=== PATIENT | male | born 1955 | race Caucasian/White ===

== ENCOUNTER 2017-03-13 07:12 | Emergency (ER) | payer OTHER ==
[~2017-03-13 07:12] MED LIST: ASPI81TA82 PO; CLIN1CAP6 PO; CRES10TA PO
[2017-03-13 07:15] VITALS: BP 187/101; PULSE 84; RESP 15; TEMP 98.2; O2SAT 99
[2017-03-13] MEDS ORDERED: SODIUM CHLOR 0.9% 1000 ML INJ 1,000 ML IV SCH (07:39)
[2017-03-13] MEDS ORDERED: RANI1TAB5 PO (07:42)
[2017-03-13] MEDS ORDERED: AMLO10TA2 PO (07:42)
[2017-03-13] MEDS ORDERED: ROSU1TAB8 PO (07:42)
[2017-03-13 07:44] VITALS: O2SAT 98
--- NOTE | 2017-03-13 07:44 | PD ---
HPI Chief Complaint: Abdominal Pain Time Seen by Provider: 07:39 Travel History International Travel<30 days: No Contact w/Intl Traveler<30days: No Traveled to known affect area: No History of Present Illness HPI 61-year-old male with history of diverticulosis, presents to the ER today for 3 weeks history of left upper quadrant abdominal pains which he currently measures at a 2 out of 10, nausea for the last day, had been seen by Dr. Montgomery and had a CAT scan done on Sunday, had an allergic reaction to the IV dye, but does not have CAT scan results yet. He denies any diarrhea, fevers, or any other symptoms. Modifying Factors: None Associated Signs & Symptoms: Left upper quadrant abdominal pains, nausea Risk Factors: None PFSH Past Medical History Hypertension: Yes ?: Not Past Surgical History Tonsillectomy: Yes Social History Alcohol Use: No Tobacco Use: No Substance Use: No Allergies-Medications (Allergen,Severity, Reaction): Coded Allergies: Iodinated Contrast- Oral and IV Dye (Verified Allergy, Severe, throat swelling, 03/13/17) Sulfa (Sulfonamide Antibiotics) (Unverified Allergy, Severe, SWELLING, ) Reported Meds & Prescriptions Reported Meds & Active Scripts Active Reported Amlodipine (Amlodipine Besylate) 10 Mg Tab 10 Mg PO DAILY Ranitidine 75 (Ranitidine HCl) 75 Mg Tab 75 Mg PO DAILY Take 30 to 60 minutes before eating food or drinking beverages that cause heartburn. Rosuvastatin (Rosuvastatin Calcium) 20 Mg Tab 20 Mg PO DAILY Review of Systems Except as stated in HPI: all other systems reviewed are Neg Physical Exam Narrative GENERAL: Well-developed elderly white male patient currently mild distress. Awake and oriented 3. SKIN: Focused skin assessment warm/dry. HEAD: Atraumatic. Normocephalic. EYES: Pupils equal and round. No scleral icterus. No injection or drainage. ENT: No nasal bleeding or discharge. Mucous membranes pink and moist. NECK: Trachea midline. No JVD. CARDIOVASCULAR: Regular rate and rhythm. No murmur appreciated. RESPIRATORY: No accessory muscle use. Clear to auscultation. Breath sounds equal bilaterally. GASTROINTESTINAL: Abdomen soft, non-tender, nondistended. Hepatic and splenic margins not palpable. MUSCULOSKELETAL: No obvious deformities. No clubbing. No cyanosis. No edema. NEUROLOGICAL: Awake and alert. No obvious cranial nerve deficits. Motor grossly within normal limits. Normal speech. PSYCHIATRIC: Appropriate mood and affect; insight and judgment normal. Data Data Last Documented VS Vital Signs Date Time Temp Pulse Resp B/P (MAP) Pulse Ox O2 Delivery O2 Flow Rate FiO2 03/13/17 07:45 86 18 135/86 (102) 99 Room Air 03/13/17 07:15 98.2 Orders Orders Complete Blood Count With Diff (03/13/17 07:39) Comprehensive Metabolic Panel (03/13/17 07:39) Lipase (03/13/17 07:39) Urinalysis - C+S If Indicated (03/13/17 07:39) Iv Access Insert/Monitor (03/13/17 07:39) Ecg Monitoring (03/13/17 07:39) Oximetry (03/13/17 07:39) Ondansetron Inj (Zofran Inj) (03/13/17 07:45) Sodium Chlor 0.9% 1000 Ml Inj (Ns 1000 M (03/13/17 07:39) Sodium Chloride 0.9% Flush (Ns Flush) (03/13/17 07:45) Famotidine Inj (Pepcid Inj) (03/13/17 07:45) Electrocardiogram (03/13/17 07:44) Ckmb (Isoenzyme) Profile (03/13/17 07:44) Troponin I (03/13/17 07:44) Chest, Single Ap (03/13/17 07:44) Abdomen, Flat & Upright (03/13/17 07:44) Labs Laboratory Tests Test 03/13/17 07:40 03/13/17 08:50 White Blood Count 7.2 TH/MM3 Red Blood Count 5.15 MIL/MM3 Hemoglobin 16.2 GM/DL Hematocrit 46.8 % Mean Corpuscular Volume 90.8 FL Mean Corpuscular Hemoglobin 31.5 PG Mean Corpuscular Hemoglobin Concent 34.7 % Red Cell Distribution Width 12.9 % Platelet Count 284 TH/MM3 Mean Platelet Volume 7.7 FL Neutrophils (%) (Auto) 62.6 % Lymphocytes (%) (Auto) 27.5 % Monocytes (%) (Auto) 8.2 % Eosinophils (%) (Auto) 1.3 % Basophils (%) (Auto) 0.4 % Neutrophils # (Auto) 4.5 TH/MM3 Lymphocytes # (Auto) 2.0 TH/MM3 Monocytes # (Auto) 0.6 TH/MM3 Eosinophils # (Auto) 0.1 TH/MM3 Basophils # (Auto) 0.0 TH/MM3 CBC Comment DIFF FINAL Differential Comment Blood Urea Nitrogen 17 MG/DL Creatinine 0.98 MG/DL Random Glucose 105 MG/DL Total Protein 7.7 GM/DL Albumin 4.0 GM/DL Calcium Level 8.7 MG/DL Alkaline Phosphatase 81 U/L Aspartate Amino Transf (AST/SGOT) 27 U/L Alanine Aminotransferase (ALT/SGPT) 55 U/L Total Bilirubin 0.6 MG/DL Sodium Level 139 MEQ/L Potassium Level 3.6 MEQ/L Chloride Level 104 MEQ/L Carbon Dioxide Level 27.5 MEQ/L Anion Gap 8 MEQ/L Estimat Glomerular Filtration Rate 78 ML/MIN Total Creatine Kinase 70 U/L Troponin I LESS THAN 0.02 NG/ML Lipase 103 U/L Urine Color COLORLESS Urine Turbidity CLEAR Urine pH 7.0 Urine Specific [place] 1.002 Urine Protein NEG mg/dL Urine Glucose (UA) NEG mg/dL Urine Ketones NEG mg/dL Urine Occult Blood NEG Urine Nitrite NEG Urine Bilirubin NEG Urine Urobilinogen LESS THAN 2.0 MG/DL Urine Leukocyte Esterase NEG Microscopic Urinalysis Comment CULT NOT INDICATED MDM Medical Decision Making Medical Screen Exam Complete: Yes Emergency Medical Condition: Yes Medical Record Reviewed: Yes Interpretation(s) EKG shows NSR, no ST elevation or depression, and no arrhythmias. No significant T-wave inversions. Laboratory Tests Test 03/13/17 07:40 03/13/17 08:50 Monocytes (%) (Auto) 8.2 % (0.0-8.0) Estimat Glomerular Filtration Rate 78 ML/MIN (>89) Troponin I LESS THAN 0.02 NG/ML Last 24 hours Impressions Chest X-Ray 03/13/17 0744 Signed Impressions: Service Date/Time: Monday, March 13, 2017 08:45 - CONCLUSION: 1. No acute cardiopulmonary disease. Juan Antonio Herman MD Differential Diagnosis Left upper quadrant abdominal pains and nausea: Gastritis versus gastroenteritis versus diverticulitis versus gastric ulcer versus cardiac issues Narrative Course EKG did not show any signs of acute ST-T changes or dysrhythmias. A review of patient's CAT scan done last week did not show any signs of acute processes. Lab work was otherwise unremarkable. Vital signs are stable in the ER. Patient had been given IV fluids and Zofran. At this point, my plan would be to release the patient would follow-up to his physician. Return for worsening in symptoms as necessary. The plan has been discussed with him and he states understanding. Diagnosis Primary Impression: Abdominal pain Med/Other Pt SpecificInfo: Prescription(s) given Scripts Ondansetron Odt (Zofran Odt) 4 Mg Tab 4 MG SL Q6HR Y for Nausea/Vomiting, #7 TAB 0 Refills Prov: Andrea Mazariegos MD 03/13/17 Disposition: 01 DISCHARGE HOME Condition: Stable Andrea Mazariegos MD Mar 13, 2017 07:44
[2017-03-13 07:45] VITALS: BP 135/86; PULSE 86; RESP 18; O2SAT 99
[2017-03-13] MEDS ORDERED: FAMOTIDINE 20 MG/2 ML VIAL IV PUSH ONE (07:45)
[2017-03-13] MEDS ORDERED: SODIUM CHLORIDE 0.9% FLUSH 10 ML FLUSH IV FLUSH PRN (07:45)
[2017-03-13] MEDS ORDERED: ONDANSETRON HCL 4 MG/2 ML VIAL IVP ONE (07:45)
[2017-03-13 08:30] LABS: AUTOMATED NEUTROPHIL # 4.5 TH/MM3 (1.8-7.7); BASOPHIL % 0.4 % (0.0-2.0); EOSINOPHIL # 0.1 TH/MM3 (0-0.4); EOSINOPHIL % 1.3 % (0.0-4.0); HEMATOCRIT 46.8 % (39.0-51.0); HEMO FLAGS DIFF FINAL; LYMPH % 27.5 % (9.0-44.0); MEAN CELL VOLUME 90.8 FL (80.0-100.0); MEAN CORPUSCULAR HEMOGLOBIN 31.5 PG (27.0-34.0); MEAN CORPUSCULAR HGB CONC 34.7 % (32.0-36.0); MONO % 8.2 % (0.0-8.0); NEUT % 62.6 % (16.0-70.0); PLATELET COUNT 284 TH/MM3 (150-450); RED BLOOD COUNT 5.15 MIL/MM3 (4.50-5.90); RED CELL DISTRIBUTION WIDTH 12.9 % (11.6-17.2); WHITE BLOOD COUNT 7.2 TH/MM3 (4.0-11.0)
[2017-03-13 08:37] LABS: ALT (GPT) 55 U/L (12-78); ANION GAP 8 MEQ/L (5-15); AST (GOT) 27 U/L (15-37); BICARBONATE 27.5 MEQ/L (21.0-32.0); BLOOD UREA NITROGEN 17 MG/DL (7-18); CHLORIDE 104 MEQ/L (98-107); GLOMERULAR FILTRATION RATE 78 ML/MIN (>89); POTASSIUM 3.6 MEQ/L (3.5-5.1); SODIUM (NA) 139 MEQ/L (136-145)
[2017-03-13 08:39] LABS: ALKALINE PHOSPHATASE 81 U/L (45-117); TOTAL BILIRUBIN ADULT 0.6 MG/DL (0.2-1.0)
[2017-03-13 08:48] LABS: CREATINE KINASE 70 U/L (39-308)
--- NOTE | 2017-03-13 09:12 | RADRPT ---
EXAM DATE/TIME: 03/13/2017 08:45 [facility] COMPARISON: No previous studies available for comparison. INDICATIONS : Nausea and upper abdomen discomfort. MEDICAL HISTORY : None. SURGICAL HISTORY : None. ENCOUNTER: Initial ACUITY: 3 weeks PAIN SCORE: 0/10 LOCATION: Bilateral chest abdomen discomfort. FINDINGS: A single view of the chest demonstrates the lungs to be symmetrically aerated without evidence of mas s, infiltrate or effusion. The cardiomediastinal contours are unremarkable. Osseous structures are intact. CONCLUSION: 1. No acute cardiopulmonary disease. Juan Antonio Herman MD on March 13, 2017 at 9:10 Board Certified Radiologist. This report was verified electronically.
[2017-03-13 09:15] LABS: BLOOD, URINE NEG (NEG); GLUCOSE,URINE NEG (NEG); KETONE, URINE NEG (NEG); NITRITE,URINE NEG (NEG); URINE COLOR COLORLESS (YELLW/STRAW)
[2017-03-13 09:18] LABS: COMMENT (UR) CULT NOT INDICATED; CULTURE IF INDICATED CULT NOT INDICATED
--- NOTE | 2017-03-13 09:20 | RADRPT ---
EXAM DATE/TIME: 03/13/2017 08:41 [facility] COMPARISON: No previous studies available for comparison. EXTERNAL COMPARISON : [facility] March 09, 2017 INDICATIONS : Nausea and upper abdomen discomfort. Patient states he had a CT scan and had a reaction the other day . Started not feeling well a few days later. MEDICAL HISTORY : None. SURGICAL HISTORY : None. ENCOUNTER: Initial ACUITY: 3 weeks PAIN SCORE: 2/10 LOCATION: Bilateral upper abdomen. FINDINGS: Moderate amount of stool throughout the colon. No small bowel or gastric distention. No free air. No evidence of organomegaly. CONCLUSION: Benign-appearing abdomen. Moderate stool. Nicholas Butts MD on March 13, 2017 at 9:17 Board Certified Radiologist. This report was verified electronically.
[2017-03-13] MEDS ORDERED: ZOFR4TAB3 SL (09:46)
[2017-03-13 10:29] VITALS: BP 125/79
--- NOTE | 2017-03-13 14:18 | EKG ---
Date Performed: 03/13/2017 Time Performed: 08:15:43 PTAGE: 61 years EKG: Sinus rhythm SEPTAL MYOCARDIAL INFARCTION ABNORMAL ECG NO PREVIOUS TRACING Clinical correlation recommended. DOCTOR: Can Durbin Interpretating Date/Time 03/13/2017 14:17:28
== END 2017-03-13 10:30 | disposition home or self-care (01) ==
LOC: NEPE 07:12
DX: R10.12 Left upper quadrant pain (principal); K57.90 Diverticulosis of intestine, part unspecified, without perforation or abscess without bleeding; R94.31 Abnormal electrocardiogram [ECG] [EKG]
CPT/HCPCS: 71010; 74020; 80053; 81001; 82550; 83690; 84484; 85025; 93005; 96361; 96374; 96375; 99285; J2405; J7030

== ENCOUNTER 2017-06-11 07:34 | Emergency (ER) | payer OTHER ==
[~2017-06-11 07:34] MED LIST changes: +AMLO10TA2 PO; -ASPI81TA82 PO; -CLIN1CAP6 PO; -CRES10TA PO; +RANI1TAB5 PO; +ROSU1TAB8 PO; +ZOFR4TAB3 SL
[2017-06-11 07:35] VITALS: BP 168/97; PULSE 86; RESP 18; TEMP 98.7; O2SAT 99
[2017-06-11 08:18] VITALS: BP 184/92; PULSE 82; RESP 16; O2SAT 100
[2017-06-11] MEDS ORDERED: MULT1TAB46 (08:30)
[2017-06-11] MEDS ORDERED: VITA250T3 PO (08:30)
[2017-06-11] MEDS ORDERED: FISH500C (08:30)
[2017-06-11] MEDS ORDERED: SODIUM CHLORIDE 0.9% FLUSH 10 ML FLUSH IV FLUSH PRN (09:00)
[2017-06-11 09:46] LABS: AUTOMATED NEUTROPHIL # 3.7 TH/MM3 (1.8-7.7); BASOPHIL % 0.8 % (0.0-2.0); EOSINOPHIL # 0.1 TH/MM3 (0-0.4); EOSINOPHIL % 1.3 % (0.0-4.0); HEMATOCRIT 45.9 % (39.0-51.0); HEMO FLAGS DIFF FINAL; LYMPH % 31.1 % (9.0-44.0); MEAN CELL VOLUME 90.9 FL (80.0-100.0); MEAN CORPUSCULAR HEMOGLOBIN 32.3 PG (27.0-34.0); MEAN CORPUSCULAR HGB CONC 35.6 % (32.0-36.0); MONO % 8.2 % (0.0-8.0); NEUT % 58.6 % (16.0-70.0); PLATELET COUNT 311 TH/MM3 (150-450); RED BLOOD COUNT 5.04 MIL/MM3 (4.50-5.90); RED CELL DISTRIBUTION WIDTH 13.2 % (11.6-17.2); WHITE BLOOD COUNT 6.3 TH/MM3 (4.0-11.0)
[2017-06-11 09:51] LABS: BLOOD, URINE NEG (NEG); GLUCOSE,URINE NEG (NEG); KETONE, URINE NEG (NEG); MUCUS URINE FEW /lpf (OCC); NITRITE,URINE NEG (NEG); PH, URINE 7.5 (5.0-8.5); URINE COLOR LIGHT-YELLOW (YELLW/STRAW)
--- NOTE | 2017-06-11 09:52 | PD ---
HPI Chief Complaint: GI Complaint Time Seen by Provider: 08:36 Travel History International Travel<30 days: No Contact w/Intl Traveler<30days: No Traveled to known affect area: No History of Present Illness HPI The patient's 61 years old and has abdominal pain in the left side. It has been present for a month or more and was also present three months ago and then lasted for about a month. He reports a colonoscopy performed by Dr. Montgomery showed diverticulosis. The colonoscopy was performed about 5 months prior. He also reports a history of kidney stones. He also reports pain in the lower pelvis bilaterally. He's had no vomiting or fever. He denies diarrhea and hematuria. He does describe mild nausea. He follows with urology as well. He is worried he might have cancer. Working has been difficult due to distraction from pain. PFSH Past Medical History High Cholesterol: Yes Diverticulitis: Yes (diverticulosis) GERD: Yes Hypertension: Yes Past Surgical History Tonsillectomy: Yes Social History Alcohol Use: Yes (occasional) Tobacco Use: No Substance Use: No Allergies-Medications (Allergen,Severity, Reaction): Coded Allergies: Iodinated Contrast- Oral and IV Dye (Verified Allergy, Severe, throat swelling, 03/13/17) Sulfa (Sulfonamide Antibiotics) (Unverified Allergy, Severe, SWELLING, ) Reported Meds & Prescriptions Reported Meds & Active Scripts Active Bentyl (Dicyclomine HCl) 10 Mg Cap 10 Mg PO TID PRN Flagyl (Metronidazole) 500 Mg Tab 500 Mg PO BID 10 Days Cipro (Ciprofloxacin HCl) 500 Mg Tab 500 Mg PO BID 10 Days Zofran Odt (Ondansetron Odt) 4 Mg Tab 4 Mg SL Q6HR PRN Reported Fish Oil (Twisp-3 Fatty Acids) 60 Mg-90 Mg-500 Mg Cap Vitamin C (Ascorbic Acid) 250 Mg Tab 250 Mg PO Multi Vitamin Daily (Multiple Vitamin) 1 Tab Tab Amlodipine (Amlodipine Besylate) 10 Mg Tab 10 Mg PO DAILY Ranitidine 75 (Ranitidine HCl) 75 Mg Tab 75 Mg PO DAILY Take 30 to 60 minutes before eating food or drinking beverages that cause heartburn. Rosuvastatin (Rosuvastatin Calcium) 20 Mg Tab 20 Mg PO DAILY Review of Systems Except as stated in HPI: all other systems reviewed are Neg General / Constitutional: No: Fever Gastrointestinal: Positive: Nausea, Abdominal Pain, No: Vomiting Genitourinary: No: Hematuria Physical Exam Narrative GENERAL: 61-year-old male well-nourished well-developed no acute distress resting comfortably SKIN: Focused skin assessment warm/dry. HEAD: Atraumatic. Normocephalic. EYES: Pupils equal and round. No scleral icterus. No injection or drainage. ENT: No nasal bleeding or discharge. Mucous membranes pink and moist. NECK: Trachea midline. No JVD. CARDIOVASCULAR: Regular rate and rhythm. No murmur appreciated. RESPIRATORY: No accessory muscle use. Clear to auscultation. Breath sounds equal bilaterally. GASTROINTESTINAL: Soft. Minimal tenderness palpation left side. MUSCULOSKELETAL: No obvious deformities. No clubbing. No cyanosis. No edema. NEUROLOGICAL: Awake and alert. No obvious cranial nerve deficits. Motor grossly within normal limits. Normal speech. PSYCHIATRIC: Appropriate mood and affect; insight and judgment normal. Data Data Last Documented VS Vital Signs Date Time Temp Pulse Resp B/P (MAP) Pulse Ox O2 Delivery O2 Flow Rate FiO2 06/11/17 12:05 74 16 109/73 (85) 98 Room Air 06/11/17 07:35 98.7 VS reviewed Orders Orders Complete Blood Count With Diff (06/11/17 08:49) Comprehensive Metabolic Panel (06/11/17 08:49) Lipase (06/11/17 08:49) Urinalysis - C+S If Indicated (06/11/17 08:49) Ct Abd/Pel W/O Iv Contrast (06/11/17 08:49) Iv Access Insert/Monitor (06/11/17 08:49) Ecg Monitoring (06/11/17 08:49) Oximetry (06/11/17 08:49) Sodium Chloride 0.9% Flush (Ns Flush) (06/11/17 09:00) Ed Discharge Order (06/11/17 11:32) Labs Laboratory Tests Test 06/11/17 09:05 White Blood Count 6.3 TH/MM3 Red Blood Count 5.04 MIL/MM3 Hemoglobin 16.3 GM/DL Hematocrit 45.9 % Mean Corpuscular Volume 90.9 FL Mean Corpuscular Hemoglobin 32.3 PG Mean Corpuscular Hemoglobin Concent 35.6 % Red Cell Distribution Width 13.2 % Platelet Count 311 TH/MM3 Mean Platelet Volume 8.3 FL Neutrophils (%) (Auto) 58.6 % Lymphocytes (%) (Auto) 31.1 % Monocytes (%) (Auto) 8.2 % Eosinophils (%) (Auto) 1.3 % Basophils (%) (Auto) 0.8 % Neutrophils # (Auto) 3.7 TH/MM3 Lymphocytes # (Auto) 2.0 TH/MM3 Monocytes # (Auto) 0.5 TH/MM3 Eosinophils # (Auto) 0.1 TH/MM3 Basophils # (Auto) 0.0 TH/MM3 CBC Comment DIFF FINAL Differential Comment Urine Color LIGHT-YELLOW Urine Turbidity CLEAR Urine pH 7.5 Urine Specific [place] 1.013 Urine Protein NEG mg/dL Urine Glucose (UA) NEG mg/dL Urine Ketones NEG mg/dL Urine Occult Blood NEG Urine Nitrite NEG Urine Bilirubin NEG Urine Urobilinogen LESS THAN 2.0 MG/DL Urine Leukocyte Esterase NEG Urine Mucus FEW /lpf Microscopic Urinalysis Comment CULT NOT INDICATED Blood Urea Nitrogen 16 MG/DL Creatinine 0.98 MG/DL Random Glucose 97 MG/DL Total Protein 8.1 GM/DL Albumin 4.3 GM/DL Calcium Level 9.3 MG/DL Alkaline Phosphatase 82 U/L Aspartate Amino Transf (AST/SGOT) 44 U/L Alanine Aminotransferase (ALT/SGPT) 62 U/L Total Bilirubin 0.6 MG/DL Sodium Level 139 MEQ/L Potassium Level 4.0 MEQ/L Chloride Level 104 MEQ/L Carbon Dioxide Level 29.4 MEQ/L Anion Gap 6 MEQ/L Estimat Glomerular Filtration Rate 78 ML/MIN Lipase 112 U/L MDM Medical Decision Making Medical Screen Exam Complete: Yes Emergency Medical Condition: Yes Medical Record Reviewed: Yes Differential Diagnosis Constipation, Gastritis, Acute Cholecystitis, Biliary Colic, Pancreatitis, VILLASENOR , Hepatitis, Bowel Obstruction, Cystitis, Mesenteric Ischemia, AAA, Appendicitis , Renal Stone/Hydronephrosis, GERD, perforated viscous Narrative Course CBC & BMP Diagram 06/11/17 09:05 Total Protein 8.1, Albumin 4.3, Calcium Level 9.3, Alkaline Phosphatase 82, Aspartate Amino Transf (AST/SGOT) 44 H, Alanine Aminotransferase (ALT/SGPT) 62, Total Bilirubin 0.6 Case was discussed with Dr Pink, Dr Montgomery's partner, who reports prior visits for patient for similar comlaints, With essentially normal work up including CT, we can try bentyl an element of subclinical diverticulitis is a consideration. Case discussed at length with patient, who appears somewhat satisfied with work up however with essentially normal colonoscopy, labs and two cts in last few months, diagnosis may not be readily identifiable. Pt ok for discharge home with follow up. Diagnosis Primary Impression: Abdominal pain Qualified Codes: R10.9 - Unspecified abdominal pain Additional Impression: Diverticulosis Qualified Codes: K57.90 - Diverticulosis of intestine, part unspecified, without perforation or abscess without bleeding Referrals: Nicholas Montgomery MD 2 days Med/Other Pt SpecificInfo: Prescription(s) given Scripts Dicyclomine (Bentyl) 10 Mg Cap 10 MG PO TID Y for Bowel Management, #20 CAP 0 Refills Prov: Cade Escalante MD 06/11/17 Metronidazole (Flagyl) 500 Mg Tab 500 MG PO BID for Infection for 10 Days, #20 TAB 0 Refills Prov: Cade Escalante MD 06/11/17 Ciprofloxacin (Cipro) 500 Mg Tab 500 MG PO BID for Infection for 10 Days, #20 TAB 0 Refills Prov: Cade Escalante MD 06/11/17 Disposition: DISCHARGE HOME Condition: Stable Cade Escalante MD Jun 11, 2017 09:52
[2017-06-11 09:58] LABS: COMMENT (UR) CULT NOT INDICATED; CULTURE IF INDICATED CULT NOT INDICATED
[2017-06-11 10:13] LABS: ALKALINE PHOSPHATASE 82 U/L (45-117); ALT (GPT) 62 U/L (12-78); TOTAL BILIRUBIN ADULT 0.6 MG/DL (0.2-1.0)
[2017-06-11 10:14] LABS: ANION GAP 6 MEQ/L (5-15); AST (GOT) 44 U/L (15-37); BICARBONATE 29.4 MEQ/L (21.0-32.0); BLOOD UREA NITROGEN 16 MG/DL (7-18); CHLORIDE 104 MEQ/L (98-107); GLOMERULAR FILTRATION RATE 78 ML/MIN (>89); SODIUM (NA) 139 MEQ/L (136-145)
--- NOTE | 2017-06-11 10:34 | RADRPT ---
EXAM DATE/TIME: 06/11/2017 09:43 [facility] COMPARISON: No previous studies available for comparison. INDICATIONS : Left lower abdominal pain for 1 day ORAL CONTRAST: No oral contrast ingested. RADIATION DOSE: 9.21 CTDIvol (mGy) MEDICAL HISTORY : Hypertension. Diverticulosis. Renal calculi. SURGICAL HISTORY : None. ENCOUNTER: Initial ACUITY: 1 day PAIN SCALE: 6/10 LOCATION: Left upper quadrant TECHNIQUE: Volumetric scanning of the abdomen and pelvis was performed. Using automated exposure control and ad justment of the mA and/or kV according to patient size, radiation dose was kept as low as reasonably achievable to obtain optimal diagnostic quality images. DICOM format image data is available electro nically for review and comparison. FINDINGS: LOWER LUNGS: The visualized lower lungs are clear. LIVER: Homogeneous density without lesion. There is no dilation of the biliary tree. No calcified gallston es. SPLEEN: Normal size without lesion. PANCREAS: Within normal limits. KIDNEYS: Normal in size and shape. Single stones in the collecting system of both kidneys. Both are nonobstruc ting with a posterior midpole 2.5 mm stone on the right and an anterior midpole 3.2 mm stone on the l eft. ADRENAL GLANDS: Within normal limits. VASCULAR: There is no aortic aneurysm. BOWEL/MESENTERY: The stomach, small bowel, and colon demonstrate no acute abnormality. There is no free intraperitone al air or fluid. Diverticular disease of the distal descending and sigmoid colon without diverticulit is. Appendix is identified and is radiographically normal. ABDOMINAL WALL: Within normal limits. RETROPERITONEUM: There is no lymphadenopathy. BLADDER: No wall thickening or mass. REPRODUCTIVE: Prostate is mildly prominent at 4.7 cm with some dystrophic calcifications. INGUINAL: Small right inguinal hernia measuring 1.6 cm in diameter only containing fat. MUSCULOSKELETAL: Within normal limits for patient age. CONCLUSION: 1. Single bilateral nonobstructing calculi in the midpole collecting systems of both kidneys. This me asures 2.5 mm on the right and 3.2 mm on the left. No hydronephrosis. 2. Diverticular disease of the descending and sigmoid colon without diverticulitis. 3. Prostate is mildly prominent at 4.7 cm. Pedro Jones MD on June 11, 2017 at 10:27 Board Certified Radiologist. This report was verified electronically.
[2017-06-11] MEDS ORDERED: METR-1 PO (11:34)
[2017-06-11] MEDS ORDERED: CIPR-9 PO (11:34)
[2017-06-11] MEDS ORDERED: DICY10 PO (11:34)
[2017-06-11 12:05] VITALS: BP 109/73; PULSE 74; RESP 16; O2SAT 98
== END 2017-06-11 12:22 | disposition home or self-care (01) ==
LOC: NEPE 07:34
DX: K57.90 Diverticulosis of intestine, part unspecified, without perforation or abscess without bleeding (principal); N20.0 Calculus of kidney; E78.00 Pure hypercholesterolemia, unspecified; K21.9 Gastro-esophageal reflux disease without esophagitis; I10 Essential (primary) hypertension; Z79.899 Other long term (current) drug therapy; Z88.2 Allergy status to sulfonamides; Z87.442 Personal history of urinary calculi
CPT/HCPCS: 74176; 80053; 81001; 83690; 85025; 99285